=== PATIENT | female | born 1970 | race Caucasian/White ===

== ENCOUNTER 2017-01-02 03:11 | Emergency (ER) | payer SELFPAY ==
[2014-07-04 01:46] VITALS: BMI 22.3
== END 2017-01-02 04:11 | disposition home or self-care (01) ==
LOC: D.ER 03:11
DX: J02.8 Acute pharyngitis due to other specified organisms (principal); F17.200 Nicotine dependence, unspecified, uncomplicated

== ENCOUNTER 2017-08-01 16:18 | Emergency (ER) | payer SELFPAY ==
[2014-07-04 01:46] VITALS: BMI 22.3
[2017-08-01 17:38] LABS: BASOPHILS 0.7 % (0-2); EOSINOPHILS 7.6 % (0-7); HEMATOCRIT 42.4 % (36.0-48.0); HEMOGLOBIN 13.7 g/dL (12-16); IMMATURE GRANULOCYTES 0.1 % (0-5); LYMPHOCYTES 23.4 % (15-50); MCH 30.6 pg (26.0-34.0); MCHC 32.3 g/dL (31.0-37.0); MCV 94.9 fL (80.0-100.0); MONOCYTES 8.7 % (2-11); NEUTROPHILS 59.5 % (40-80); PLATELET COUNT 234 10x3/uL (130-400); RBC 4.47 10x6/uL (4.00-5.40); RDW 13.4 % (11.5-14.5); WBC 7.3 10x3/uL (4.8-10.8)
[2017-08-01 17:56] LABS: ANION GAP 7.9 mmol/L (8-16); CALCIUM 9.8 mg/dL (8.5-10.1); CARBON DIOXIDE 31.4 mmol/L (21.0-32.0); CREATININE - SERUM 0.9 mg/dL (0.6-1.3); POTASSIUM - SERUM 4.3 mmol/L (3.5-5.1)
== END 2017-08-01 19:53 | disposition home or self-care (01) ==
LOC: D.ER 16:18
PROVIDERS: Physician Assistant Medical
DX: R10.9 Unspecified abdominal pain (principal); K52.9 Noninfective gastroenteritis and colitis, unspecified; J45.909 Unspecified asthma, uncomplicated

== ENCOUNTER 2018-11-05 04:32 | Emergency (ER) | payer MEDICAID ==
[~2018-11-05] VITALS: Ht 162.6 cm; Wt 59.1 kg
[2018-11-05 04:36] VITALS: Ht 162.6 cm; Wt 59.1 kg
[2018-11-05] MEDS ORDERED: COUGH SYRUP (04:36)
[2018-11-05] MEDS ORDERED: SYMBICORT 80-10.2 GM INH (04:58)
[2018-11-05 05:12] VITALS: BP 107/73
== END 2018-11-05 05:12 | disposition home or self-care (01) ==
LOC: D.ER 04:32
DX: J45.901 Unspecified asthma with (acute) exacerbation (principal)